=== PATIENT | female | born 1955 | race Caucasian/White ===

== ENCOUNTER 2016-12-25 11:36 | Observation (INO) ==
[2016-12-25] MEDS ORDERED: Ipratropium/Albuterol Neb 3 ML IH ONE (12:23)
--- NOTE | 2016-12-25 13:18 | Emergency Department Note ---
Disposition Clinical Impression: Acute exacerbation of chronic obstructive airways disease Disposition: Home, Self-Care Condition: Good Instructions: Chronic Obstructive Pulmonary Disease (ED) Reasons to Return/Additional Instructions: Blood pressure screening: When you had your blood pressure taken, if the top number was greater than 120 with a bottom number was greater than 80, I discussed and recommended that you call your primary care provider or a physician of your choice this week to arrange follow-up for further evaluation of your blood pressure. Elevated blood pressures which go untreated can lead to stroke, heart attack, kidney failure and other life-threatening diseases. This is a screening exam and recommendations are to follow with your Family Physician. ( We discussed reasons why the elevation could be occurring at this time. ) If you have had an EKG and/or x-ray performed in the emergency department, it will be reviewed by the software test technician and/or radiologist. If the review changes your diagnosis or treatment you will be contacted at the phone number you provided. Prescribed outpatient testing: Please call to schedule an appointment for the test that was ordered on the form provided. If you been prescribed an antibiotic: Take it as instructed until itis all finished. If you cannot tolerate that medication for some reason, call your physician for a replacement. If he had a specimen collected for a culture, a culture report takes 48-72 hours to generate. You will be contacted if a change in treatment is needed. Return if your condition worsens or if you have severe pain, fever, vomiting or difficulty breathing. If you received or were prescribed a medication that may cause drowsiness ( Tramadol, Phenergan, Trazodone, Diazepam, Lorazepam, Hydroxyzine, Xanax, Hydrocodone, Oxycodone, Codeine, or any other medication) DO NOT drive or drink alcohol, or operate machinery that requires you to be alert for at least 8 hours after taking that medication. If you smoke or chew tobacco products: discuss with your family physician options to help in the cessation in the use of tobacco products. If you to find a physician: Go to [email or web address] or call: [facility] [phone] [facility], You may have multiple scripts and some may have been electronically sent . If you are give a printed script please also take this in when filling the scripts. A diagnosis may require multiple medications to treat and all are important in your healthcare issues. Prescriptions: Amoxicillin/Clavulanate [Augmentin] 875 mg PO BIDWM #20 tablet predniSONE [PredniSONE] 40 mg PO DAILY #12 tablet Referrals: Renea Guido CNP [Primary Care Provider] - Forms: ED Satisfaction Letter Time of Disposition: 15:28 SOB HPI - General Chief Complaint: ED Shortness of Breath/Dyspnea Stated Complaint: JENNIFER/congestion Time Seen by Provider: 12/25/16 11:45 Source: patient Mode of arrival: ambulatory Limitations: no limitations Nursing Notes Reviewed: Yes Vital Signs Reviewed: Yes - History of Present Illness Respiratory cold symptoms started on Friday she always has some cough and wheezing all the time because of her COPD now started cough up phlegm initially clear now starting to turn yellow green tinge denies any blurred vision double vision has some dyspnea with episodes of coughing has been doing aerosols with little relief she says antibiotics and steroids she was just here make sure she did not have an underlying pneumonia Pt Subjective Complaint: shortness of breath, cough Onset (ago): week(s) Context: recent illness, other (Occurs frequently this time of year) Severity: moderate Consistency/Duration: gradually worsening Improves with: nothing Worsens with: exertion Known history of: COPD Associated symptoms: Reports: cough, wheezing, sputum production. Denies: chest pain, pain with inspiration, fever, orthopnea, lower extremity pain, polyuria, polydipsia, parasthesias, palpitations, hemoptysis, diaphoresis, nausea/vomiting, syncope, abdominal pain, sense of impending doom Treatment prior to arrival: oxygen, bronchodilator Cough present: Yes Cough Description: Productive, Bronchospastic, Wheezy Cough Frequency: Intermittent Sputum production: Yes Sputum Amount: Small Sputum Color: Yellow - Related Data Home Medications Medication Instructions Recorded Confirmed Albuterol Sulfate [Ventolin Hfa] 2 puff IH TID PRN 12/25/16 12/25/16 Aspirin/Calcium Carbonate [Cesar 1 each PO DAILY 12/25/16 12/25/16 Women's Aspirin Tablet] Beclomethasone Diprop 40mcg [Qvar 1 puff IH BID 12/25/16 12/25/16 40 mcg] Clobetasol Propionate 0.05% 1 appl TP BID 12/25/16 12/25/16 [Temovate] Cyanocobalamin (Vitamin B-12) 1,000 mcg PO DAILY 12/25/16 12/25/16 [Vitamin B12] Escitalopram [Lexapro] 20 mg PO DAILY 12/25/16 12/25/16 Gabapentin [Neurontin] 300 mg PO TID 12/25/16 12/25/16 LORazepam [Ativan] 0.5 mg PO TID PRN 12/25/16 12/25/16 Losartan Potassium [Cozaar] 100 mg PO DAILY 12/25/16 12/25/16 Tramadol HCl [Ultram] 50 mg PO TID PRN 12/25/16 12/25/16 hydroCHLOROthiazide 12.5 mg PO DAILY 12/25/16 12/25/16 [Hydrochlorothiazide] Previous Rx's Medication Instructions Recorded Amoxicillin/Clavulanate [Augmentin] 875 mg PO BIDWM #20 tablet 12/25/16 predniSONE [PredniSONE] 40 mg PO DAILY #12 tablet 12/25/16 Allergies Allergy/AdvReac Type Severity Reaction Status Date / Time azithromycin AdvReac See Verified 12/25/16 11:38 Comments codeine AdvReac Unconscious Verified 12/25/16 11:38 prednisone AdvReac Cramping Verified 12/25/16 12:06 of the Muscles propoxyphene [From Darvon] AdvReac Hives Verified 12/25/16 11:38 All systems ED: reviewed and negative except as stated. Constitutional: Denies: fever, chills, weakness Eyes: Denies: eye pain, eye discharge ENT ED: Denies: congestion Cardiovascular: Reports: dyspnea on exertion, orthopnea. Denies: chest pain, palpitations Respiratory: Reports: cough, dyspnea, wheezes, sputum production Gastrointestinal: Denies: abdominal pain, nausea Genitourinary: Denies: urgency, dysuria Musculoskeletal: Denies: back pain Integumentary: Denies: rash, abrasion Neurological: Denies: headache Psychiatric: Denies: anxiety, depression Endocrine: Denies: fatigue Hematological/Lymphatic: Denies: easy bleeding Allergic/Immunologic: Denies: facial swelling Past Medical History - Past Medical History Attestation: Yes The following information was validated with the patient. Source: patient, old records reviewed, nursing notes reviewed Medical history: Reports: arthritis, asthma, COPD, hypertension, other Psychiatric history: Reports: anxiety, depression CUTTER FIRST history: Reports: bilateral tubal ligation - Social History Smoking Status: Current every day smoker Smokeless Tobacco Status: No Alcohol use: Reports: none Drug use: Reports: none Physical Exam - General Limitations: no limitations General appearance: alert, in no apparent distress, anxious, cachectic - Head Head exam: atraumatic, normocephalic, normal inspection - Eye Eye exam: Present: normal appearance, PERRL, EOMI - ENT ENT exam: normal exam, normal oropharynx, mucous membranes moist - Neck Neck exam: Present: normal inspection, full ROM, trachea midline - Chest Chest inspection: Present: normal inspection, symmetric chest wall rise - Respiratory Respiratory exam: Present: normal lung sounds bilaterally, wheezes, accessory muscle use, prolonged expiratory phase, other (rhonci) - Cardiovascular Cardiovascular exam: Present: regular rate, normal rhythm, normal heart sounds - Abdominal Exam Abdominal exam: Present: soft, Non-Tender, normal bowel sounds. Absent: mass, pulsatile mass - Extremities Exam Extremities exam: Present: normal inspection, full ROM, normal capillary refill. Absent: tenderness, joint swelling - Expanded Lower Extremity Exam Neurovascular/Tendon exam: Present: normal capillary refill, normal fine/light touch Gait: observed and normal - Back Exam Back exam: Present: normal inspection, full ROM. Absent: muscle spasm - Neurological Exam Neurological exam: Present: alert, oriented X3, CN II-XII intact, normal gait - Psychiatric Psychiatric exam: Present: normal affect, normal mood - Skin Skin exam: Present: warm, dry, intact, normal color Course Course Narrative: Patient was seen and examined given a DuoNeb treatment had marked improvement post DuoNeb started bringing up yellow phlegm patient was offered hospitalization she declined she felt that she was comfortable enough to go home but if she would worsen she would return she is placed on Augmentin which has worked well for her in the past Taper dose prednisone and then discharged home stable Vital Signs Temperature 98.0 F 12/25/16 11:39 Pulse Rate 88 12/25/16 11:39 Respiratory Rate 22 12/25/16 11:39 O2 Sat by Pulse Oximetry 91 12/25/16 11:39 Temperature 98.0 F 12/25/16 11:42 Pulse Rate 93 12/25/16 14:59 Respiratory Rate 20 12/25/16 14:59 Blood Pressure 166/94 12/25/16 14:59 O2 Sat by Pulse Oximetry 92 12/25/16 14:59 Oxygen Delivery Oxygen Delivery Nasal Cannula Shortness of Breath/Dyspnea - Differential Diagnosis Likely: acute exacerbation of chronic obstructive airways disease - Medical Records Medical records reviewed: Yes I reviewed the patient's medical records. - Radiology Data Radiology results reviewed: Yes I reviewed the patient's radiology results. ITS Impressions Chest X-Ray 12/25/16 12:23 IMPRESSION: Moderate COPD No evidence of acute cardio respiratory process D/ / Campos De Anda MD / Campos De Anda MD Interpreting Provider: Campos De Anda MD Critical Care Time Critical Care Time: No
[2016-12-25] MEDS ORDERED: Dexamethasone 4 MG/ML VIAL PO ONE (14:44)
[2016-12-25] MEDS ORDERED: Acetaminophen 325 MG TABLET PO PRN (16:36)
[2016-12-25] MEDS ORDERED: Ibuprofen 400 MG TABLET PO PRN (16:36)
[2016-12-25] MEDS ORDERED: Naloxone 0.4 MG/ML INJ IVP PRN (16:36)
[2016-12-25] MEDS ORDERED: Ipratropium/Albuterol Neb 3 ML IH SCH (17:00)
--- NOTE | 2016-12-25 18:28 | Internal Med History&Physical ---
Date of Encounter: 12/25/16 Time of Encounter: 17:55 Assessment and Plan (1) Acute exacerbation of chronic obstructive airways disease Current visit: Yes Status: Acute She has been started on Unasyn and Solu-Medrol. I will order chest CT to further evaluate. Lactobacillus will be ordered. Room air oximetry will be checked prior to discharge. (2) Hypertension Current visit: Yes Status: Chronic Continue Cozaar and hydrochlorothiazide. I will add Norvasc since her pressure is significantly elevated. Qualifiers: Hypertension type: essential hypertension Qualified Code(s): I10 - Essential (primary) hypertension (3) Weight loss Current visit: Yes Status: Acute We will check TSH and order CT of chest abdomen and pelvis. Internal Medicine - H&P: HPI Chief complaint: Dyspnea Admitted From: Home Plans for Post Hospital Care: Home History of present illness: Ms. Suero is a 61 year old female who came to emergency room stating she had onset of worsening dyspnea on December 20. It seemed to improve after a few hours but worsened over the next few days especially during the last 24 hours. She was evaluated in emergency room and felt to have exacerbation of COPD. She was admitted to [facility] floor for ongoing care needs. Respiratory history is significant for having smoked since age 23 up to 3-1/2 packs per day. She had pulmonary function test 09/14/2015 which showed very severe COPD with FEV1/FVC of 28%. She does not using home oxygen and has not been tested for sleep apnea. She does not use prescribed Qvar on a regular basis. She states she has used Ventolin 3-4 times daily in the past few days. Past Med Surg Social Fam HX - Past Medical History Medical history: arthritis, asthma, COPD, hypertension, other Psychiatric history: anxiety, depression - Social History Smoking Status: Current every day smoker Smokeless Tobacco Status: No Alcohol use: none Drug use: none Internal Medicine - H&P: Meds Albuterol Sulfate [Ventolin Hfa] 2 puff IH TID PRN 12/25/16 [History] Amoxicillin/Clavulanate [Augmentin] 875 mg PO BIDWM #20 tablet 12/25/16 [Rx] Aspirin/Calcium Carbonate [Cesar Women's Aspirin Tablet] 1 each PO DAILY [History] Beclomethasone Diprop 40mcg [Qvar 40 mcg] 1 puff IH BID 12/25/16 [History] Clobetasol Propionate 0.05% [Temovate] 1 appl TP BID 12/25/16 [History] Cyanocobalamin (Vitamin B-12) [Vitamin B12] 1,000 mcg PO DAILY 12/25/16 [History ] Escitalopram [Lexapro] 20 mg PO DAILY 12/25/16 [History] Gabapentin [Neurontin] 300 mg PO TID 12/25/16 [History] LORazepam [Ativan] 0.5 mg PO TID PRN 12/25/16 [History] Losartan Potassium [Cozaar] 100 mg PO DAILY 12/25/16 [History] Tramadol HCl [Ultram] 50 mg PO TID PRN 12/25/16 [History] hydroCHLOROthiazide [Hydrochlorothiazide] 12.5 mg PO DAILY 12/25/16 [History] predniSONE [PredniSONE] 40 mg PO DAILY #12 tablet 12/25/16 [Rx] Allergies azithromycin Adverse Reaction (Verified 12/25/16 11:38) See Comments sts it knocks her out loses days codeine Adverse Reaction (Verified 12/25/16 11:38) Unconscious prednisone Adverse Reaction (Verified 12/25/16 12:06) Cramping of the Muscles sts can take but has to be a taper dose propoxyphene [From Darvon] Adverse Reaction (Verified 12/25/16 11:38) Hives All Systems PM: A 10-system review of systems was performed and is negative for pertinent findings except as documented above in the HPI. Review of systems: Gen.: She states her weight is decreased from 135 pounds to 105 pounds in the past 18 months, unintentional. Cardiovascular: She has history of hypertension but denies LA heart failure angina DVT or pulmonary embolus Respiratory: As per history of present illness GI: She denies disorders of her liver gallbladder or exocrine pancreas : She denies hematuria dysuria or kidney stones Neurologic: She denies large distribution strokes or seizures Endocrine: She denies diabetes thyroid disease or hyperlipidemia Hematology/oncology: She denies blood disorders cancers or anemia Psychiatric: She has anxiety and depression but denies other mental health issues Musk skeletal: She has DJD and RLS. She denies other bone joint or muscle disorders. - Constitutional Vitals: Temp Pulse Resp BP Pulse Ox 98.0 F 82 24 196/103 94 12/25/16 11:42 12/25/16 16:36 12/25/16 17:21 12/25/16 17:21 12/25/16 16:36 Exam: Gen.: She is a lean female sitting on the side of bed who appears in mild to moderate dyspnea. HEENT: Head is atraumatic and normocephalic. Eyes: EOMI. There is no scleral icterus. Mouth: Mucosa is moist. Neck: Supple and nontender. There is no thyromegaly or adenopathy noted. Heart: Regular without murmurs gallops or ectopics. Lungs: She has diminished breath sounds diffusely. There are a few scattered rhonchi in the bases. No inspiratory crackles are heard. Abdomen: Soft and nontender. Exam is limited because she is in the seated position. Extremities: There is no cyanosis edema or clubbing noted. Dorsalis pedis and posttibial pulses are trace palpable bilaterally. She has mild minimal DJD changes of her hands. Neurologic: Mental status: She is talkative and a good historian. Cranial nerves: Smile is symmetric. Forehead wrinkles bilaterally. Tongue protrudes midline. EOMI. Motor: There is no pronator drift. Cerebellar: Finger to nose is intact bilaterally. Skin: Warm and dry
[2016-12-25] MEDS: methylPREDNISolone 125 MG/2 ML VIAL IVP SCH (18:42)
[2016-12-25] MEDS: Ampicillin/Sulbactam 3,000 MG in 0.9 % Sodium Chloride Mini Bag 100 ML IVPB SCH (18:43)
[2016-12-25] MEDS: 0.9 % Sodium Chloride 1,000 ML IVC SCH (18:44)
[2016-12-25 18:52] LABS: Basophils % 0.2 %; Hematocrit 43.9 % (35.3-44.9); Hemoglobin 15.8 g/dL (11.5-15.4); Immature Granulocytes % 0.4 % (0-4); Lymphocytes # 0.4 K/mcL (0.6-4.6); Lymphocytes % 8.7 %; Mean Corpuscular Hemoglobin 31.3 pg (28.0-33.3); Mean Corpuscular Volume 87.1 fL (83.0-100.0); Mean Platelet Volume 9.2 fL (9.4-12.4); Monocytes # 0.2 K/mcL (0.0-1.3); Monocytes % 3.3 %; Platelet Count 188 K/mcL (140-400); Red Blood Count 5.04 M/mcL (3.82-4.97); Red Cell Distribution Width 12.2 % (11.5-14.5); Segmented Neutrophils % 87.4 %
[2016-12-25 19:05] LABS: Alanine Aminotransferase 21 Units/L (0-55); Albumin 4.3 g/dL (3.5-5.0); Albumin/Globulin Ratio 1.3 (1.1-2.2); Alkaline Phosphatase 94 Units/L (38-126); Aspartate Amino Transferase 27 Units/L (5-34); BUN/Creatinine Ratio 12 (6-26); Bilirubin,Total 0.9 mg/dL (0.2-1.2); Blood Urea Nitrogen 9 mg/dL (7-20); Calcium 9.8 mg/dL (8.6-10.8); Carbon Dioxide 29 mEq/L (19-29); Chloride 81 mEq/L (98-109); Globulin 3.2 g/dL (2.4-3.5); Glucose 138 mg/dL (70-99); Osmolality,Calculated 255 (280-300); Potassium 3.2 mEq/L (3.5-4.5); Sodium 122 mEq/L (136-145); Total Protein 7.5 g/dL (6.0-8.3); eGFR For African Americans > 60 (> 60); eGFR For Non-African Americans > 60 (> 60)
[2016-12-25] MEDS ORDERED: Albuterol 2.5 MG/3 ML NEBULIZER IH SCH (20:00)
[2016-12-25] MEDS ORDERED: Ipratropium 1 PUFF INHALER IH SCH (20:00)
[2016-12-25] MEDS: amLODIPine 5 MG TABLET PO SCH (20:11)
[2016-12-25] MEDS: Lactobacillus 1 EACH CAP.SPRINK PO SCH (20:12)
[2016-12-25] MEDS: Gabapentin 300 MG CAPSULE PO SCH (20:12)
[2016-12-25] MEDS: traMADol 50 MG TABLET PO PRN (20:14)
[2016-12-25] MEDS: Beclomethasone 40mcg MDI IH SCH (22:14)
[2016-12-25] MEDS: Albuterol 2.5 MG/3 ML NEBULIZER IH PRN (22:18)
[2016-12-26] MEDS: methylPREDNISolone 125 MG/2 ML VIAL IVP SCH ×2 (00:47→05:46)
[2016-12-26] MEDS: Ampicillin/Sulbactam 3,000 MG in 0.9 % Sodium Chloride Mini Bag 100 ML IVPB SCH ×4 (00:47→20:13)
[2016-12-26] MEDS: Albuterol 2.5 MG/3 ML NEBULIZER IH PRN ×3 (05:16→16:54)
[2016-12-26] MEDS ORDERED: amLODIPine 5 MG TABLET PO STA (05:22)
[2016-12-26] MEDS: traMADol 50 MG TABLET PO PRN ×3 (05:44→20:15)
[2016-12-26] MEDS: *HR* LORazepam 0.5 MG TABLET PO PRN (05:44)
[2016-12-26 06:10] LABS: Hematocrit 44.1 % (35.3-44.9); Hemoglobin 15.7 g/dL (11.5-15.4); Immature Granulocytes % 0.3 % (0-4); Lymphocytes # 0.5 K/mcL (0.6-4.6); Lymphocytes % 16.7 %; Mean Corpuscular HGB Conc 35.6 g/dL (31.6-35.5); Mean Corpuscular Hemoglobin 31.1 pg (28.0-33.3); Mean Corpuscular Volume 87.3 fL (83.0-100.0); Mean Platelet Volume 9.8 fL (9.4-12.4); Monocytes # 0.1 K/mcL (0.0-1.3); Monocytes % 3.5 %; Neutrophils # 2.3 K/mcL (1.6-8.9); Platelet Count 220 K/mcL (140-400); Red Blood Count 5.05 M/mcL (3.82-4.97); Red Cell Distribution Width 11.9 % (11.5-14.5); Segmented Neutrophils % 79.5 %
[2016-12-26 06:20] LABS: Activated Partial Thrombo Time 26.4 Seconds (26.0-36.0)
[2016-12-26 06:33] LABS: BUN/Creatinine Ratio 16 (6-26); Blood Urea Nitrogen 12 mg/dL (7-20); Calcium 9.4 mg/dL (8.6-10.8); Carbon Dioxide 26 mEq/L (19-29); Chloride 84 mEq/L (98-109); Glucose 165 mg/dL (70-99); Osmolality,Calculated 261 (280-300); Sodium 124 mEq/L (136-145); eGFR For African Americans > 60 (> 60); eGFR For Non-African Americans > 60 (> 60)
[2016-12-26] MEDS: amLODIPine 5 MG TABLET PO SCH ×2 (08:25→10:18)
[2016-12-26] MEDS ORDERED: hydroCHLOROthiazide 25 MG TABLET PO SCH (09:00)
[2016-12-26] MEDS: Aspirin Enteric Coated 81 MG Tablet PO SCH (09:36)
[2016-12-26] MEDS: Lactobacillus 1 EACH CAP.SPRINK PO SCH ×2 (09:37→20:15)
[2016-12-26] MEDS: Gabapentin 300 MG CAPSULE PO SCH ×3 (09:38→20:15)
[2016-12-26] MEDS: Cyanocobalamin (B-12) 1,000 MCG TABLET PO SCH (09:38)
[2016-12-26] MEDS ORDERED: Metoprolol XL (24 HR) Succ 25 MG TAB.ER.24H PO SCH (10:00)
--- NOTE | 2016-12-26 10:01 | Internal Med Progress Note ---
Date of Encounter: 12/26/16 Time of Encounter: 09:45 - Assessment and plan (1) Acute exacerbation of chronic obstructive airways disease Current Visit: Yes Status: Acute Assessment and plan: December 26. Continue Unasyn and lactobacillus. Will change to oral prednisone from Solu-Medrol. (2) Hypertension Current Visit: Yes Status: Chronic Assessment and plan: December 26. Continue Norvasc and Cozaar. We will discontinued HCTZ because of hypokalemia and hyponatremia. We will start Toprol and clonidine and adjust doses as needed. Qualifiers: Hypertension type: essential hypertension Qualified Code(s): I10 - Essential (primary) hypertension (3) Weight loss Current Visit: Yes Status: Acute Assessment and plan: December 26. CT of chest abdomen pelvis did not show evidence of malignancy. (4) Low TSH level Current Visit: Yes Status: Acute Assessment and plan: December 26. Will check free T4 in a.m. - Subjective Interval history: December 26. She has no new complaints. Her blood pressure has been high and she reports it was high occasionally at home prior to hospitalization. - Constitutional Vitals: Temp Pulse Resp BP Pulse Ox 98.4 F 89 16 177/87 93 12/26/16 07:28 12/26/16 07:28 12/26/16 07:28 12/26/16 07:28 12/26/16 07:28 Exam: She is sitting on the side of the bed appears dyspneic. She is wearing oxygen by nasal cannula. She answers questions properly. I reviewed her medications and lab results. Internal Medicine: Result - Labs CBC & Chem 7: 12/26/16 05:43 12/26/16 05:43 Labs: Short CBC 12/25/16 12/26/16 Range/Units 18:40 05:43 WBC 4.6 2.9 L (4.3-11.1) K/mcL Hgb 15.8 H 15.7 H (11.5-15.4) g/dL Hct 43.9 44.1 (35.3-44.9) % Plt Count 188 220 (140-400) K/mcL Neutrophils # 4.0 2.3 (1.6-8.9) K/mcL BMP 12/25/16 12/26/16 18:40 05:43 Sodium 122 L 124 L Potassium 3.2 L 3.0 L Chloride 81 L 84 L Carbon Dioxide 29 26 BUN 9 12 Creatinine 0.73 0.74 Glucose 138 H 165 H Calcium 9.8 9.4 Liver Function 12/25/16 Range/Units 18:40 Total Bilirubin 0.9 (0.2-1.2) mg/dL AST 27 (5-34) Units/L ALT 21 (0-55) Units/L Alkaline Phosphatase 94 (38-126) Units/L Albumin 4.3 (3.5-5.0) g/dL - ABG Interpretation ABG results: PT/INR, D-dimer PT 11.0 Seconds (9.4-12.1) 12/26/16 05:43 - Impressions Impressions Abdomen/Pelvis CT 12/25/16 18:16 IMPRESSION: 1. Pulmonary emphysema. No infiltrate or mass 2. No significant abdominopelvic process demonstrated 3. Left iliac bone lesion has a nonaggressive appearance. Differential possibilities include fibrous dysplasia and bone cyst. The lesion does not have an aggressive appearance and is felt to be incidental D/ / Antonio Hernandez MD / Antonio Hernandez MD Interpreting Provider: Antonio Hernandez MD Chest CT 12/25/16 18:16 IMPRESSION: 1. Pulmonary emphysema. No infiltrate or mass 2. No significant abdominopelvic process demonstrated 3. Left iliac bone lesion has a nonaggressive appearance. Differential possibilities include fibrous dysplasia and bone cyst. The lesion does not have an aggressive appearance and is felt to be incidental D/ / Antonio Hernandez MD / Antonio Hernandez MD Interpreting Provider: Antonio Hernandez MD Consult Discharge Plan - Plan Referrals: Renea Guido, [employer] [Primary Care Provider] - 1 week
[2016-12-26] MEDS: Beclomethasone 40mcg MDI IH SCH ×2 (10:29→22:25)
[2016-12-26] MEDS: CLOBETASOL PROPIONATE 15 GM TUBE TP SCH ×2 (11:24→22:17)
[2016-12-26] MEDS: 0.9 % Sodium Chloride w KCl 20 MEQ/1,000 ML MLS IVC SCH (11:30)
[2016-12-26] MEDS: cloNIDine HCl 0.1 MG TABLET PO SCH ×2 (12:00→16:10)
--- NOTE | 2016-12-26 12:34 | Electrocardiograph Report ---
[address] [address] Test Date: 2016-12-26 Pat Name: Sis Suero Department: [id number] Room: [facility] Gender: F Manager Government: [id number] : 1955 Requested By: Vamsi Llamas Order Number: [id number] Reading MD: Donaldo Leslie MD Measurements Intervals [place] Rate: 88 P: 85 DE: 132 QRS: 64 QRSD: 96 T: 74 QT: 398 QTc: 443 Interpretive Statements SINUS RHYTHM RIGHT ATRIAL ENLARGEMENT LEFT ATRIAL ENLARGEMENT BASELINE ARTIFACT Electronically Signed On 12-26-2016 12:32:41 EDT by Donaldo Leslie MD
[2016-12-26] MEDS: predniSONE 20 MG TABLET PO SCH (16:11)
[2016-12-27] MEDS: Ampicillin/Sulbactam 3,000 MG in 0.9 % Sodium Chloride Mini Bag 100 ML IVPB SCH ×4 (01:54→21:08)
[2016-12-27] MEDS: 0.9 % Sodium Chloride w KCl 20 MEQ/1,000 ML MLS IVC SCH (01:56)
[2016-12-27 06:24] LABS: Hematocrit 38.3 % (35.3-44.9); Hemoglobin 13.6 g/dL (11.5-15.4); Immature Granulocytes % 0.3 % (0-4); Lymphocytes # 0.6 K/mcL (0.6-4.6); Lymphocytes % 6.8 %; Mean Corpuscular HGB Conc 35.5 g/dL (31.6-35.5); Mean Corpuscular Hemoglobin 31.4 pg (28.0-33.3); Mean Corpuscular Volume 88.5 fL (83.0-100.0); Mean Platelet Volume 9.7 fL (9.4-12.4); Monocytes # 0.8 K/mcL (0.0-1.3); Monocytes % 8.7 %; Neutrophils # 7.3 K/mcL (1.6-8.9); Platelet Count 156 K/mcL (140-400); Red Blood Count 4.33 M/mcL (3.82-4.97); Red Cell Distribution Width 12.4 % (11.5-14.5); Segmented Neutrophils % 84.2 %
[2016-12-27 06:39] LABS: BUN/Creatinine Ratio 28 (6-26); Blood Urea Nitrogen 20 mg/dL (7-20); Calcium 8.8 mg/dL (8.6-10.8); Carbon Dioxide 27 mEq/L (19-29); Chloride 91 mEq/L (98-109); Glucose 96 mg/dL (70-99); Osmolality,Calculated 266 (280-300); Potassium 4.1 mEq/L (3.5-4.5); Sodium 127 mEq/L (136-145); eGFR For African Americans > 60 (> 60); eGFR For Non-African Americans > 60 (> 60)
[2016-12-27] MEDS: Albuterol 2.5 MG/3 ML NEBULIZER IH PRN ×3 (07:18→21:59)
[2016-12-27] MEDS: *HR* LORazepam 0.5 MG TABLET PO PRN (07:30)
[2016-12-27] MEDS: 0.9 % Sodium Chloride 1,000 ML IVC SCH (07:41)
[2016-12-27] MEDS ORDERED: Fluconazole 100 MG TABLET PO ONE (09:20)
[2016-12-27] MEDS ORDERED: ALPRAZolam 0.25 MG TABLET PO PRN (09:46)
--- NOTE | 2016-12-27 09:47 | Internal Med Progress Note ---
Date of Encounter: 12/27/16 Time of Encounter: 09:30 - Assessment and plan (1) Acute exacerbation of chronic obstructive airways disease Current Visit: Yes Status: Acute Assessment and plan: December 26. Continue Unasyn and lactobacillus. Will change to oral prednisone from Solu-Medrol. December 27. Continue Unasyn and lactobacillus and prednisone. I will start Spiriva and Symbicort. (2) Hypertension Current Visit: Yes Status: Chronic Assessment and plan: December 26. Continue Norvasc and Cozaar. We will discontinued HCTZ because of hypokalemia and hyponatremia. We will start Toprol and clonidine and adjust doses as needed. December 27. Continue Norvasc Cozaar and doxazosin. Remain off HCTZ. Qualifiers: Hypertension type: essential hypertension Qualified Code(s): I10 - Essential (primary) hypertension (3) Weight loss Current Visit: Yes Status: Acute Assessment and plan: December 26. CT of chest abdomen pelvis did not show evidence of malignancy. December 27. TSH was suppressed and free T4 is pending. (4) Low TSH level Current Visit: Yes Status: Acute Assessment and plan: December 26. Will check free T4 in a.m. - Subjective Interval history: December 26. She has no new complaints. Her blood pressure has been high and she reports it was high occasionally at home prior to hospitalization. December 27. She has no new complaints. She still feels dyspneic as well as slightly anxious. - Constitutional Vitals: Temp Pulse Resp BP Pulse Ox 98.1 F 86 18 161/87 93 12/27/16 06:05 12/27/16 06:05 12/27/16 06:05 12/27/16 06:05 12/27/16 06:05 Exam: She is resting in bed but appears tachypneic. Her affect is overall cheerful. I reviewed her medications and lab results. Internal Medicine: Result - Labs CBC & Chem 7: 12/27/16 06:00 12/27/16 06:00 Labs: Short CBC 12/27/16 Range/Units 06:00 WBC 8.7 D (4.3-11.1) K/mcL Hgb 13.6 D (11.5-15.4) g/dL Hct 38.3 (35.3-44.9) % Plt Count 156 (140-400) K/mcL Neutrophils # 7.3 (1.6-8.9) K/mcL BMP 12/27/16 06:00 Sodium 127 L Potassium 4.1 D Chloride 91 L Carbon Dioxide 27 BUN 20 Creatinine 0.72 Glucose 96 Calcium 8.8 - ABG Interpretation ABG results: PT/INR, D-dimer PT 11.0 Seconds (9.4-12.1) 12/26/16 05:43 Consult Discharge Plan - Plan Referrals: Renea Guido, POWDERMAN [Primary Care Provider] - 1 week
[2016-12-27] MEDS: Gabapentin 300 MG CAPSULE PO SCH ×3 (09:56→21:07)
[2016-12-27] MEDS: Aspirin Enteric Coated 81 MG Tablet PO SCH (09:56)
[2016-12-27] MEDS: Lactobacillus 1 EACH CAP.SPRINK PO SCH ×2 (09:56→21:07)
[2016-12-27] MEDS: predniSONE 20 MG TABLET PO SCH ×2 (09:56→18:05)
[2016-12-27] MEDS: Cyanocobalamin (B-12) 1,000 MCG TABLET PO SCH (09:57)
[2016-12-27] MEDS: amLODIPine 5 MG TABLET PO SCH (09:57)
[2016-12-27] MEDS ORDERED: Tiotropium 18 MCG inhalation IH SCH (10:00)
[2016-12-27] MEDS: Budesonide/Formoterol 160/4.5 MDI IH SCH ×2 (10:41→21:59)
[2016-12-27] MEDS: ALPRAZolam 0.25 MG TABLET PO SCH ×2 (11:18→21:07)
[2016-12-27] MEDS: Nicotine 14 MG PATCH.TD24 TD SCH (11:22)
[2016-12-27] MEDS: CLOBETASOL PROPIONATE 15 GM TUBE TP SCH ×2 (17:48→21:10)
[2016-12-27] MEDS: traMADol 50 MG TABLET PO PRN ×2 (18:06→21:12)
[2016-12-28] MEDS: Ampicillin/Sulbactam 3,000 MG in 0.9 % Sodium Chloride Mini Bag 100 ML IVPB SCH ×2 (03:06→07:14)
[2016-12-28] MEDS: Albuterol 2.5 MG/3 ML NEBULIZER IH PRN (06:50)
[2016-12-28 07:30] VITALS: BP 173/87
[2016-12-28] MEDS: Gabapentin 300 MG CAPSULE PO SCH (08:59)
[2016-12-28] MEDS: Cyanocobalamin (B-12) 1,000 MCG TABLET PO SCH (08:59)
[2016-12-28] MEDS: Aspirin Enteric Coated 81 MG Tablet PO SCH (08:59)
[2016-12-28] MEDS: Lactobacillus 1 EACH CAP.SPRINK PO SCH (09:00)
[2016-12-28] MEDS: amLODIPine 5 MG TABLET PO SCH (09:00)
[2016-12-28] MEDS: traMADol 50 MG TABLET PO PRN (09:00)
[2016-12-28] MEDS: ALPRAZolam 0.25 MG TABLET PO SCH (09:00)
[2016-12-28] MEDS: predniSONE 20 MG TABLET PO SCH (09:00)
[2016-12-28] MEDS: Nicotine 14 MG PATCH.TD24 TD SCH (09:01)
[2016-12-28] MEDS: CLOBETASOL PROPIONATE 15 GM TUBE TP SCH (09:02)
--- NOTE | 2016-12-28 09:20 | Discharge Summary ---
Date of Encounter: 12/28/16 Time of Encounter: 09:00 - Discharge Diagnosis (1) Acute exacerbation of chronic obstructive airways disease Priority: Primary Status: Acute (2) Hypertension Priority: Secondary Status: Chronic Qualifiers: Hypertension type: essential hypertension Qualified Code(s): I10 - Essential (primary) hypertension (3) Weight loss Priority: Secondary Status: Acute (4) Low TSH level Priority: Secondary Status: Acute - Discharge Medications Prescriptions: Albuterol Neb [Proventil Neb] 2.5 mg IH Q2H PRN #30 vial.neb PRN Reason: Dyspnea Amlodipine Besylate 10 mg PO DAILY #30 tablet Amoxicillin/Clavulanate [Augmentin] 875 mg PO BIDWM #6 tablet Budesonide/Formoterol 160/4.5 [Symbicort 160/4.5] 2 puff IH BIDR #1 hfa.aer.ad Doxazosin [Cardura] 1 mg PO HS #30 tablet Lactobacillus [Culturelle] 1 each PO BID #6 cap.sprink Tiotropium [Spiriva] 18 mcg IH DAILY #30 capsule Home Medications: Albuterol Sulfate [Ventolin Hfa] 2 puff IH TID PRN 12/25/16 [History] Aspirin/Calcium Carbonate [[facility] Women's Aspirin Tablet] 1 each PO DAILY [History] Clobetasol Propionate 0.05% [Temovate] 1 appl TP BID 12/25/16 [History] Cyanocobalamin (Vitamin B-12) [Vitamin B12] 1,000 mcg PO DAILY 12/25/16 [History ] Escitalopram [Lexapro] 20 mg PO DAILY 12/25/16 [History] Gabapentin [Neurontin] 300 mg PO TID 12/25/16 [History] LORazepam [Ativan] 0.5 mg PO TID PRN 12/25/16 [History] Losartan Potassium [Cozaar] 100 mg PO DAILY 12/25/16 [History] Tramadol HCl [Ultram] 50 mg PO TID PRN 12/25/16 [History] Albuterol Neb [Proventil Neb] 2.5 mg IH Q2H PRN #30 vial.neb 12/28/16 [Rx] Amlodipine Besylate 10 mg PO DAILY #30 tablet 12/28/16 [Rx] Amoxicillin/Clavulanate [Augmentin] 875 mg PO BIDWM #6 tablet 12/28/16 [Rx] Budesonide/Formoterol 160/4.5 [Symbicort 160/4.5] 2 puff IH BIDR #1 hfa.aer.ad 12/28/16 [Rx] Doxazosin [Cardura] 1 mg PO HS #30 tablet 12/28/16 [Rx] Lactobacillus [Culturelle] 1 each PO BID #6 cap.sprink 12/28/16 [Rx] Tiotropium [Spiriva] 18 mcg IH DAILY #30 capsule 12/28/16 [Rx] Allergies/Adverse Reactions: Allergies azithromycin Adverse Reaction (Verified 12/25/16 11:38) See Comments sts it knocks her out loses days codeine Adverse Reaction (Verified 12/25/16 11:38) Unconscious prednisone Adverse Reaction (Verified 12/25/16 12:06) Cramping of the Muscles sts can take but has to be a taper dose propoxyphene [From Darvon] Adverse Reaction (Verified 12/25/16 11:38) Hives Procedures/tests Complete & Pending: Procedures Performed prior 72 hours Category Date Time Status CT abd pelvis wo no iv no oral [CT] Routine Cat Scan 12/25/16 18:[address] chest wo con [CT] Routine Cat Scan 12/25/16 18:16 Completed EKG [ECG 12 lead ECG] [ECG] Stat Y 12/26/16 05:24 Completed Date of admission: 12/25/16 16:30 Primary care physician: Renea Guido CNP - Patient Status Disposition: Home, Self-Care Condition: Good Functional capacity at discharge: independent ambulation Overall status at discharge: patient is progressing back to baseline - Discharge Instructions Follow Up With: Renea Guido CNP [Primary Care Provider] - 1 week (Will make on next business day. office closed ) - Diet and Activity Activity: resume usual activities as tolerated, wear oxygen at all times Diet: advance to your usual diet Hospital course: Ms. Suero is a 61 year old female who came to emergency room stating she had onset of worsening dyspnea on December 20. It seemed to improve after a few hours but worsened over the next few days especially during the last 24 hours. She was evaluated in emergency room and felt to have exacerbation of COPD. She was admitted to MedSurg floor for ongoing care needs. Initial orders were written by the emergency room physician. I saw her on December 25 and performed a history and physical. She was started on IV Unasyn and Solu- Medrol initially. I changed her to oral prednisone which was tolerated well. She had improvement in her respiratory status. Room air oximetry on the day prior to discharge showed saturation of 86% at rest. She was prescribed home oxygen at 4 L per minute by nasal cannula 24/7 with portable gas and a concentrator. I strongly encouraged her to discontinue smoking. HCTZ was discontinued because of the hyponatremia and hypokalemia. Her sodium charis to 127 and potassium normalized to 4.1 by the day prior to discharge. She will remain off HCTZ at discharge. I started her on amlodipine and Cardura and her blood pressure remained overall satisfactory with significant fluctuations noted during hospitalization. TSH returned slightly low at 0.287. Free T4 was normal at 1.10. I will let her PCP monitor this. A CT of the chest abdomen pelvis was done to further evaluate her reported 30 pound weight loss. No evidence of malignancy was found. Her PCP can monitor her weight. On December 28 I felt she was stable for discharge home. She will follow with her PCP Renea Guido CNP within 1 week. I will order a nebulizer machine to use for prn albuterol nebs. She was also started on Symbicort and Spiriva. - Time Spent with Patient Total time spent providing and/or coordinating discharge services: - Constitutional Vitals: Temp Pulse Resp BP Pulse Ox 97.6 F 88 20 173/87 92 12/28/16 06:45 12/28/16 06:45 12/28/16 06:45 12/28/16 06:45 12/28/16 06:50
== END 2016-12-28 11:40 | disposition home or self-care (01) ==
LOC: INPPIK 11:36 → EMEROOPIK 11:36 → INPPIK 17:24
PROVIDERS: ADMIT Internal Medicine; ATTEND Internal Medicine